=== PATIENT | female | born 1960 | race African-American/Black ===

== ENCOUNTER 2017-10-04 09:41 | Day surgery (SDC) | payer MEDICARE, OTHER ==
[2017-10-04 10:44] LABS: ADD MAN DIFF? NO
[2017-10-04 10:46] LABS: WHITE BLOOD COUNT 4.3 10^3/ul (4.8-10.8)
[2017-10-04 10:46] LABS: BASOPHILS % 0.7 % (0.0-2.0); EOSINOPHILS # 0.1 10^3/ul (0.0-0.5); EOSINOPHILS % 3.2 % (0.0-7.0); HEMATOCRIT 41.3 % (37.0-47.0); HEMOGLOBIN 12.3 g/dl (12.0-16.0); LYMPHOCYTES # 1.4 10^3/ul (0.8-2.9); LYMPHOCYTES % 32.5 % (15.0-51.0); MEAN CORPUSCULAR HEMOGLOBIN 27.5 pg (29.0-33.0); MEAN CORPUSCULAR HGB CONC 29.8 g/dl (32.0-37.0); MEAN CORPUSCULAR VOLUME 92.4 fl (82.0-101.0); MEAN PLATELET VOLUME 11.1 fl (7.4-10.4); MONOCYTE # 0.5 10^3/ul (0.3-0.9); NEUTROPHIL # 2.2 10^3/ul (1.6-7.5); NEUTROPHILS % 51.1 % (39.0-77.0); PLATELET COUNT 201 10^3/UL (140-415); RED BLOOD COUNT 4.47 10^6/ul (4.20-5.40); RED CELL DISTRIBUTION WIDTH 16.6 % (11.5-14.5)
[2017-10-04 11:13] LABS: ANION GAP 21 (8-16); CARBON DIOXIDE 27 mmol/L (21-31); CHLORIDE 100 mmol/L (97-110); GLUCOSE 98 mg/dl (70-220); INR 0.99; PROTIME 13.2 Sec (11.9-14.9)
[2017-10-04 11:14] LABS: PARTIAL THROMBOPLASTIN TIME 28.6 Sec (25.0-35.0)
[2017-10-04 11:30] LABS: SODIUM 141 mmol/L (135-144)
[2017-10-04 11:34] LABS: BLOOD UREA NITROGEN 50 mg/dl (7-20); CALCIUM 9.8 mg/dl (8.4-10.2); CREATININE 9.66 mg/dl (0.44-1.00)
[2017-10-04] MEDS: NA POLYST SULFON 15 GM/60 ML BTL PO ×2 (13:07)
[2017-10-05 07:22] LABS: POTASSIUM 6.8 mmol/L (3.5-5.1)
[2017-10-05 07:23] LABS: POTASSIUM 7.4 mmol/L (3.5-5.1)
== END 2017-10-04 13:15 | disposition home or self-care (01) ==
LOC: SDS 09:41 → LAB 09:41
DX: I12.0 Hypertensive chronic kidney disease with stage 5 chronic kidney disease or end stage renal disease (principal); Z01.818 Encounter for other preprocedural examination (principal); N18.6 End stage renal disease; I70.0 Atherosclerosis of aorta; Z53.9 Procedure and treatment not carried out, unspecified reason
CPT/HCPCS: 71045; 80048; 82962; 84132; 85025; 85610; 85730; 93005

== ENCOUNTER 2017-11-20 15:13 | Day surgery (SDC) | payer MEDICARE, OTHER ==
[2017-11-20 16:02] LABS: ADD MAN DIFF? NO
[2017-11-20 16:04] LABS: WHITE BLOOD COUNT 6.5 10^3/ul (4.8-10.8)
[2017-11-20 16:04] LABS: BASOPHILS % 0.5 % (0.0-2.0); EOSINOPHILS # 0.1 10^3/ul (0.0-0.5); EOSINOPHILS % 1.4 % (0.0-7.0); HEMATOCRIT 38.4 % (37.0-47.0); HEMOGLOBIN 11.9 g/dl (12.0-16.0); LYMPHOCYTES # 1.3 10^3/ul (0.8-2.9); LYMPHOCYTES % 19.1 % (15.0-51.0); MEAN CORPUSCULAR HEMOGLOBIN 27.2 pg (29.0-33.0); MEAN CORPUSCULAR VOLUME 87.9 fl (82.0-101.0); MEAN PLATELET VOLUME 10.3 fl (7.4-10.4); MONOCYTE # 0.7 10^3/ul (0.3-0.9); MONOCYTES % 10.9 % (0.0-11.0); NEUTROPHIL # 4.4 10^3/ul (1.6-7.5); NEUTROPHILS % 67.8 % (39.0-77.0); PLATELET COUNT 215 10^3/UL (140-415); RED BLOOD COUNT 4.37 10^6/ul (4.20-5.40); RED CELL DISTRIBUTION WIDTH 16.5 % (11.5-14.5)
[2017-11-20 16:26] LABS: ALANINE AMINOTRANSFERASE 23 IU/L (13-69); ALBUMIN 4.8 g/dl (3.3-4.9); ALKALINE PHOSPHATASE 113 IU/L (42-121); ANION GAP 23 (8-16); ASPARTATE AMINO TRANSFERASE 19 IU/L (15-46); BILIRUBIN,INDIRECT 0.1 mg/dl (0-1.1); BILIRUBIN,TOTAL 0.1 mg/dl (0.2-1.3); CARBON DIOXIDE 24 mmol/L (21-31); CHLORIDE 98 mmol/L (97-110); GLUCOSE 136 mg/dl (70-220); TOTAL PROTEIN 8.8 g/dl (6.1-8.1)
[2017-11-20 16:28] LABS: INR 0.93; PROTIME 12.6 Sec (11.9-14.9)
[2017-11-20 16:29] LABS: PARTIAL THROMBOPLASTIN TIME 27.8 Sec (25.0-35.0)
[2017-11-20 16:30] LABS: POTASSIUM 4.3 mmol/L (3.5-5.1); SODIUM 141 mmol/L (135-144)
[2017-11-20 16:31] LABS: BLOOD UREA NITROGEN 42 mg/dl (7-20)
[2017-11-20 16:32] LABS: CALCIUM 9.7 mg/dl (8.4-10.2); CREATININE 9.99 mg/dl (0.44-1.00)
[2017-11-20] MEDS ORDERED: IODIXANOL LOCM 100 ML BTL (16:44)
[2017-11-20] MEDS ORDERED: LIDOCAINE 1% (MDV) 20 ML INJ (16:44)
[2017-11-20] MEDS ORDERED: MIDAZOLAM 1 MG/ML 2 ML INJ (16:45)
[2017-11-20] MEDS ORDERED: FENTAnyl 50 MCG/ML VIAL (16:45)
[2017-11-20] MEDS ORDERED: ONDANSETRON 4 MG INJ (17:25)
== END 2017-11-20 18:00 | disposition home or self-care (01) ==
LOC: SDS 15:13
DX: T82.868A Thrombosis due to vascular prosthetic devices, implants and grafts, initial encounter (principal); T82.858A Stenosis of other vascular prosthetic devices, implants and grafts, initial encounter; I12.0 Hypertensive chronic kidney disease with stage 5 chronic kidney disease or end stage renal disease; E11.22 Type 2 diabetes mellitus with diabetic chronic kidney disease; N18.6 End stage renal disease; Z99.2 Dependence on renal dialysis; E03.9 Hypothyroidism, unspecified; I70.249 Atherosclerosis of native arteries of left leg with ulceration of unspecified site; L97.929 Non-pressure chronic ulcer of unspecified part of left lower leg with unspecified severity; I70.239 Atherosclerosis of native arteries of right leg with ulceration of unspecified site; L97.919 Non-pressure chronic ulcer of unspecified part of right lower leg with unspecified severity; Z89.512 Acquired absence of left leg below knee; E11.610 Type 2 diabetes mellitus with diabetic neuropathic arthropathy; Y83.2 Surgical operation with anastomosis, bypass or graft as the cause of abnormal reaction of the patient, or of later complication, without mention of misadventure at the time of the procedure
CPT/HCPCS: 36901; 71045; 75822; 80053; 82962; 85025; 85610; 85730; 93005

== ENCOUNTER 2017-12-25 05:29 | Day surgery (SDC) | payer MEDICARE, OTHER ==
[2017-12-25 06:21] LABS: ADD MAN DIFF? NO
[2017-12-25] MEDS ORDERED: PROPOFOL 20 ML (06:30)
[2017-12-25] MEDS ORDERED: MIDAZOLAM 1 MG/ML 2 ML INJ (06:30)
[2017-12-25] MEDS ORDERED: LIDOCAINE 2% (SDV) 5 ML INJ (06:30)
[2017-12-25] MEDS ORDERED: LABETALOL HCL 20MG INJ IV (06:30)
[2017-12-25] MEDS ORDERED: DIPHENHYDRAMINE 50 MG INJ IV (06:30)
[2017-12-25] MEDS ORDERED: ROCURONIUM 50 MG INJ (06:30)
[2017-12-25] MEDS ORDERED: MEPERIDINE 25 MG INJ IV (06:30)
[2017-12-25] MEDS ORDERED: morphine (1 MG/ML) 10ML SYRINGE IV ×3 (06:30)
[2017-12-25] MEDS ORDERED: hydrALAzine 20 MG INJ IV (06:30)
[2017-12-25] MEDS ORDERED: GLYCOPYRROLATE 0.4 MG INJ (06:30)
[2017-12-25] MEDS ORDERED: FENTAnyl 50 MCG/ML VIAL IV ×2 (06:30)
[2017-12-25] MEDS ORDERED: OXYCODONE/ACETAMINOPHEN (5/325) TAB PO ×2 (06:30)
[2017-12-25] MEDS ORDERED: HYDROmorphONE (0.2 MG/ML) 10ML SYG IV ×3 (06:30)
[2017-12-25] MEDS ORDERED: ONDANSETRON 4 MG INJ IV (06:30)
[2017-12-25] MEDS ORDERED: EPHEDrine SULFATE 50 MG/5 ML SYG IV (06:30)
[2017-12-25] MEDS ORDERED: MIDAZOLAM 1 MG/ML 2 ML INJ IV (06:30)
[2017-12-25] MEDS ORDERED: NEOSTIGMINE 3 MG/3 ML SYRINGE (06:30)
[2017-12-25] MEDS ORDERED: ATROPINE 1 MG/10 ML SYRINGE IV (06:30)
[2017-12-25] MEDS ORDERED: DEXAMETHASONE 4 MG/ML 1 ML INJ (06:31)
[2017-12-25] MEDS ORDERED: FENTAnyl 50 MCG/ML VIAL (06:31)
[2017-12-25] MEDS ORDERED: ONDANSETRON 4 MG INJ (06:31)
[2017-12-25] MEDS ORDERED: ROPIVACAINE 0.5 % 30 ML VIAL (06:32)
[2017-12-25 06:37] LABS: WHITE BLOOD COUNT 6.1 10^3/ul (4.8-10.8)
[2017-12-25 06:37] LABS: BASOPHILS % 0.5 % (0.0-2.0); EOSINOPHILS # 0.2 10^3/ul (0.0-0.5); EOSINOPHILS % 3.5 % (0.0-7.0); HEMATOCRIT 38.8 % (37.0-47.0); HEMOGLOBIN 11.7 g/dl (12.0-16.0); LYMPHOCYTES # 1.5 10^3/ul (0.8-2.9); LYMPHOCYTES % 24.3 % (15.0-51.0); MEAN CORPUSCULAR HEMOGLOBIN 27.7 pg (29.0-33.0); MEAN CORPUSCULAR HGB CONC 30.2 g/dl (32.0-37.0); MEAN CORPUSCULAR VOLUME 91.7 fl (82.0-101.0); MEAN PLATELET VOLUME 10.3 fl (7.4-10.4); MONOCYTE # 0.7 10^3/ul (0.3-0.9); MONOCYTES % 11.2 % (0.0-11.0); NEUTROPHIL # 3.7 10^3/ul (1.6-7.5); NEUTROPHILS % 60.3 % (39.0-77.0); NUCLEATED RED BLOOD CELLS% 0.3 /100WBC (0.0-0.0); PLATELET COUNT 260 10^3/UL (140-415); RED BLOOD COUNT 4.23 10^6/ul (4.20-5.40)
[2017-12-25 06:52] LABS: ANION GAP 15 (8-16); CARBON DIOXIDE 34 mmol/L (21-31); CHLORIDE 100 mmol/L (97-110); GLUCOSE 127 mg/dl (70-220)
[2017-12-25 06:53] LABS: INR 0.96; PARTIAL THROMBOPLASTIN TIME 28.1 Sec (25.0-35.0); PROTIME 12.9 Sec (11.9-14.9)
[2017-12-25] MEDS ORDERED: THROMBIN 5000 UNIT VIAL (06:54)
[2017-12-25] MEDS ORDERED: LIDOCAINE 1% (MPF) 30 ML INJ (06:54)
[2017-12-25] MEDS ORDERED: GELATIN SIZE 100 SPONGE (06:54)
[2017-12-25] MEDS ORDERED: HEPARIN 1000 UNITS/ML 10 ML INJ (06:54)
[2017-12-25 06:57] LABS: BLOOD UREA NITROGEN 44 mg/dl (7-20); CALCIUM 10.1 mg/dl (8.4-10.2); CREATININE 8.37 mg/dl (0.44-1.00); SODIUM 143 mmol/L (135-144)
[2017-12-25] MEDS ORDERED: CEFAZOLIN 2 GM/50 ML (PMX) 50 ML IVPB (07:00)
[2017-12-25 07:02] LABS: POTASSIUM 6.1 mmol/L (3.5-5.1)
== END 2017-12-25 07:30 | disposition home or self-care (01) ==
LOC: SDS 05:29
DX: I12.0 Hypertensive chronic kidney disease with stage 5 chronic kidney disease or end stage renal disease (principal); N18.6 End stage renal disease; Z53.9 Procedure and treatment not carried out, unspecified reason
CPT/HCPCS: 71045; 73060-RT; 80048; 82962; 85025; 85610; 85730; 93005

== ENCOUNTER 2017-12-25 07:35 | Inpatient (IN) | payer MEDICARE, OTHER ==
[2017-12-25] MEDS: morphine 2 MG INJ IV (07:56)
[2017-12-25] MEDS: NA POLYST SULFON 15 GM/60 ML BTL PO (07:56)
[2017-12-25 10:03] LABS: IRON 42 ug/dl (35-150)
[2017-12-25 10:12] LABS: % IRON SATURATION 21 % SAT (22-52); TOTAL IRON BINDING CAPACITY 201 ug/dl (241-421)
[2017-12-25] MEDS ORDERED: ACETAMINOPHEN 325 MG TAB PO (11:00)
[2017-12-25] MEDS ORDERED: DOCUSATE SODIUM 100 MG CAP PO (11:00)
[2017-12-25] MEDS ORDERED: DEXTROSE 50% 50 ML SYRINGE IV ×2 (11:00)
[2017-12-25] MEDS ORDERED: GLUCOSE GEL 15 GRAM TUBE PO ×2 (11:00)
[2017-12-25] MEDS ORDERED: ONDANSETRON 4 MG INJ IV (11:00)
[2017-12-25] MEDS ORDERED: GLUCAGON 1 MG INJ IM (11:00)
[2017-12-25] MEDS ORDERED: GLUCOSE GEL 15 GRAM TUBE BUCCAL (11:00)
[2017-12-25] MEDS ORDERED: NACL 0.9% 3 ML SYG IV (11:00)
[2017-12-25] MEDS: HYDROCODONE/APAP (10/325) TAB PO ×3 (11:36→23:52)
[2017-12-25] MEDS: INSULIN ASPART [NOVOLOG] 3 ML PEN SC ×3 (12:00→21:00)
[2017-12-25] MEDS: SEVELAMER CARBONATE 0.8 GM PKT PO ×2 (13:15→17:54)
[2017-12-25] MEDS: DIPHENHYDRAMINE 50 MG INJ IV (13:15)
[2017-12-25] MEDS: MULTIVITAMINS THERAPEUTIC TAB PO (13:15)
[2017-12-25] MEDS: ALBUMIN HUMAN 25% 100 ML IV (14:26)
[2017-12-25] MEDS: HEPARIN 1000 UNITS/ML 10 ML INJ CATHETER (16:44)
[2017-12-25 16:58] LABS: HEPATITIS B SURFACE ANTIGEN NEGATIVE (NEGATIVE)
[2017-12-25] MEDS: DIPHENHYDRAMINE 25 MG CAP PO (19:40)
[2017-12-26] MEDS: ACCU-CHEK XX (02:00)
[2017-12-26] MEDS: HYDROCODONE/APAP (10/325) TAB PO ×3 (06:30→18:12)
[2017-12-26] MEDS: INSULIN ASPART [NOVOLOG] 3 ML PEN SC ×3 (08:00→18:05)
[2017-12-26] MEDS: MULTIVITAMINS THERAPEUTIC TAB PO (08:06)
[2017-12-26] MEDS: SEVELAMER CARBONATE 0.8 GM PKT PO ×3 (08:06→18:12)
[2017-12-26] MEDS: INSULIN GLARGINE [LANtus] 3 ML PEN SC (08:10)
[2017-12-26 09:25] LABS: ADD MAN DIFF? NO
[2017-12-26 09:32] LABS: WHITE BLOOD COUNT 4.3 10^3/ul (4.8-10.8)
[2017-12-26 09:33] LABS: BASOPHILS % 0.7 % (0.0-2.0); EOSINOPHILS # 0.2 10^3/ul (0.0-0.5); EOSINOPHILS % 3.8 % (0.0-7.0); HEMATOCRIT 38.7 % (37.0-47.0); HEMOGLOBIN 11.4 g/dl (12.0-16.0); LYMPHOCYTES % 22.3 % (15.0-51.0); MEAN CORPUSCULAR HGB CONC 29.5 g/dl (32.0-37.0); MEAN CORPUSCULAR VOLUME 91.7 fl (82.0-101.0); MEAN PLATELET VOLUME 10.4 fl (7.4-10.4); MONOCYTE # 0.5 10^3/ul (0.3-0.9); MONOCYTES % 11.7 % (0.0-11.0); NEUTROPHIL # 2.6 10^3/ul (1.6-7.5); NEUTROPHILS % 61.3 % (39.0-77.0); NUCLEATED RED BLOOD CELLS% 0.9 /100WBC (0.0-0.0); PLATELET COUNT 248 10^3/UL (140-415); RED BLOOD COUNT 4.22 10^6/ul (4.20-5.40)
[2017-12-26 09:57] LABS: HEMOGLOBIN A1C 6.2 % (0-5.9)
[2017-12-26 10:12] LABS: ANION GAP 18 (8-16); BLOOD UREA NITROGEN 29 mg/dl (7-20); CALCIUM 9.7 mg/dl (8.4-10.2); CARBON DIOXIDE 31 mmol/L (21-31); CHLORIDE 101 mmol/L (97-110); CREATININE 6.29 mg/dl (0.44-1.00); GLUCOSE 117 mg/dl (70-220); MAGNESIUM 2.6 mg/dl (1.7-2.5); PHOSPHORUS 5.1 mg/dl (2.5-4.9); POTASSIUM 5.1 mmol/L (3.5-5.1); SODIUM 145 mmol/L (135-144)
[2017-12-26] MEDS: DIPHENHYDRAMINE 25 MG CAP PO (14:15)
[2017-12-26] MEDS: DIPHENHYDRAMINE 50 MG CAP PO (15:26)
[2017-12-26] MEDS: HEPARIN 1000 UNITS/ML 10 ML INJ CATHETER (17:00)
[2017-12-26] MEDS: SOD FERRIC GLUC COMPLX 125 MG in SOD CHLORIDE 0.9% 100 ML IVPB (18:00)
[2017-12-26] MEDS: EPOETIN 4000 UNITS/1 ML INJ (ESRD) SC (18:11)
[2017-12-26] MEDS ORDERED: DIPHENHYDRAMINE 50 MG CAP PO (19:00)
[2017-12-29] MEDS ORDERED: HYDROCODONE/APAP (5/325) TAB (18:29)
== END 2017-12-26 19:51 | disposition home or self-care (01) | DRG 640 ==
LOC: MS4 08:36 → E/R 07:35 → MS4 08:01
DX: E87.5 Hyperkalemia (principal); N18.6 End stage renal disease; I12.0 Hypertensive chronic kidney disease with stage 5 chronic kidney disease or end stage renal disease; E11.22 Type 2 diabetes mellitus with diabetic chronic kidney disease; Z99.2 Dependence on renal dialysis; I27.20 Pulmonary hypertension, unspecified; D63.1 Anemia in chronic kidney disease; E03.9 Hypothyroidism, unspecified; E11.51 Type 2 diabetes mellitus with diabetic peripheral angiopathy without gangrene; Z89.512 Acquired absence of left leg below knee; D50.9 Iron deficiency anemia, unspecified; E83.9 Disorder of mineral metabolism, unspecified; F41.9 Anxiety disorder, unspecified; E11.610 Type 2 diabetes mellitus with diabetic neuropathic arthropathy; Z79.4 Long term (current) use of insulin; I70.203 Unspecified atherosclerosis of native arteries of extremities, bilateral legs
CPT/HCPCS: 80048; 82728; 82962; 83036; 83540; 83735; 84100; 85025; 87340; 90935; 96374; 99285-25

== ENCOUNTER 2017-12-29 11:37 | Observation (INO) | payer MEDICARE, OTHER ==
[2017-12-29 14:45] LABS: ADD MAN DIFF? NO
[2017-12-29 14:47] LABS: BASOPHILS % 0.6 % (0.0-2.0); EOSINOPHILS # 0.2 10^3/ul (0.0-0.5); EOSINOPHILS % 3.1 % (0.0-7.0); HEMATOCRIT 36.2 % (37.0-47.0); HEMOGLOBIN 10.9 g/dl (12.0-16.0); LYMPHOCYTES # 1.2 10^3/ul (0.8-2.9); LYMPHOCYTES % 24.2 % (15.0-51.0); MEAN CORPUSCULAR HEMOGLOBIN 27.5 pg (29.0-33.0); MEAN CORPUSCULAR HGB CONC 30.1 g/dl (32.0-37.0); MEAN CORPUSCULAR VOLUME 91.4 fl (82.0-101.0); MEAN PLATELET VOLUME 10.8 fl (7.4-10.4); MONOCYTE # 0.8 10^3/ul (0.3-0.9); MONOCYTES % 15.9 % (0.0-11.0); NEUTROPHIL # 2.8 10^3/ul (1.6-7.5); PLATELET COUNT 221 10^3/UL (140-415); RED BLOOD COUNT 3.96 10^6/ul (4.20-5.40); RED CELL DISTRIBUTION WIDTH 15.8 % (11.5-14.5)
[2017-12-29 14:47] LABS: WHITE BLOOD COUNT 4.9 10^3/ul (4.8-10.8)
[2017-12-29 14:53] LABS: ANION GAP 15 (8-16); CARBON DIOXIDE 33 mmol/L (21-31); CHLORIDE 98 mmol/L (97-110); GLUCOSE 103 mg/dl (70-220)
[2017-12-29 15:07] LABS: CALCIUM 9.3 mg/dl (8.4-10.2); SODIUM 142 mmol/L (135-144)
[2017-12-29 15:08] LABS: BLOOD UREA NITROGEN 31 mg/dl (7-20); CREATININE 6.49 mg/dl (0.44-1.00); POTASSIUM 4.1 mmol/L (3.5-5.1)
[2017-12-29] MEDS ORDERED: GLUCOSE GEL 15 GRAM TUBE BUCCAL (18:00)
[2017-12-29] MEDS ORDERED: GLUCOSE GEL 15 GRAM TUBE PO ×2 (18:00)
[2017-12-29] MEDS ORDERED: ZOLPIDEM 5 MG TAB PO (18:00)
[2017-12-29] MEDS: SEVELAMER CARBONATE 0.8 GM PKT PO (18:00)
[2017-12-29] MEDS ORDERED: NACL 0.9% 3 ML SYG IV (18:00)
[2017-12-29] MEDS: INSULIN ASPART [NOVOLOG] 3 ML PEN SC ×2 (18:00→21:00)
[2017-12-29] MEDS ORDERED: GLUCAGON 1 MG INJ IM (18:00)
[2017-12-29] MEDS ORDERED: DEXTROSE 50% 50 ML SYRINGE IV ×2 (18:00)
[2017-12-29] MEDS: HYDROCODONE/APAP (5/325) TAB PO (18:30)
[2017-12-29] MEDS: ALPRAZOLAM 1 MG TAB PO (21:38)
[2017-12-29] MEDS: DIPHENHYDRAMINE 50 MG CAP PO (23:48)
[2017-12-30] MEDS: HYDROCODONE/APAP (5/325) TAB PO (00:35)
[2017-12-30] MEDS: SOD CHLORIDE 0.9% 1,000 ML IV (00:42)
[2017-12-30] MEDS: INSULIN ASPART [NOVOLOG] 3 ML PEN SC ×4 (00:56→13:00)
[2017-12-30] MEDS ORDERED: CEFAZOLIN 1 GM INJ (07:00)
[2017-12-30] MEDS: CEFAZOLIN 2 GM/50 ML (PMX) 50 ML IVPB (07:00)
[2017-12-30] MEDS ORDERED: FENTAnyl 50 MCG/ML VIAL ×2 (07:48→08:31)
[2017-12-30] MEDS ORDERED: ROPIVACAINE 0.5 % 30 ML VIAL (07:48)
[2017-12-30] MEDS ORDERED: MIDAZOLAM 1 MG/ML 2 ML INJ (07:48)
[2017-12-30] MEDS ORDERED: VANCOMYCIN 1 GM (PMX) 250 ML (08:11)
[2017-12-30 08:12] LABS: POTASSIUM 3.8 mmol/L (3.5-5.1)
[2017-12-30] MEDS: SEVELAMER CARBONATE 0.8 GM PKT PO ×2 (08:15→10:47)
[2017-12-30] MEDS ORDERED: DIPHENHYDRAMINE 50 MG INJ (08:44)
[2017-12-30] MEDS: HEPARIN 1000 UNITS/ML 10 ML INJ (08:50)
[2017-12-30] MEDS: LIDOCAINE 1% (MPF) 30 ML INJ (08:50)
[2017-12-30] MEDS: THROMBIN 5000 UNIT VIAL (08:51)
[2017-12-30] MEDS: GELATIN SIZE 100 SPONGE (08:51)
[2017-12-30] MEDS: ALPRAZOLAM 1 MG TAB PO ×2 (09:00→13:00)
[2017-12-30] MEDS ORDERED: PROCHLORPERAZINE 10 MG INJ IV (10:00)
[2017-12-30] MEDS ORDERED: HYDROmorphONE (0.2 MG/ML) 10ML SYG IV (10:00)
[2017-12-30] MEDS ORDERED: DIPHENHYDRAMINE 50 MG INJ IV (10:00)
[2017-12-30] MEDS ORDERED: FENTAnyl 50 MCG/ML VIAL IV (10:00)
[2017-12-30] MEDS ORDERED: MEPERIDINE 25 MG INJ IV (10:00)
[2017-12-30] MEDS ORDERED: ONDANSETRON 4 MG INJ IV (10:00)
== END 2017-12-30 13:55 | disposition home or self-care (01) ==
LOC: SUR 11:37 → REC 11:37 → SDS 17:44 → MS2 17:44
PROVIDERS: Internal Medicine
DX: I12.0 Hypertensive chronic kidney disease with stage 5 chronic kidney disease or end stage renal disease (principal); E11.22 Type 2 diabetes mellitus with diabetic chronic kidney disease; N18.6 End stage renal disease; Z99.2 Dependence on renal dialysis; E11.51 Type 2 diabetes mellitus with diabetic peripheral angiopathy without gangrene; E03.9 Hypothyroidism, unspecified; D63.1 Anemia in chronic kidney disease; Q78.9 Osteochondrodysplasia, unspecified; Z89.512 Acquired absence of left leg below knee; I25.10 Atherosclerotic heart disease of native coronary artery without angina pectoris; Z86.718 Personal history of other venous thrombosis and embolism
CPT/HCPCS: 36821; 73030-RT; 73080-RT; 80048; 82962; 84132; 85025; 87081

== ENCOUNTER 2019-02-14 16:07 | Emergency (ER) | payer MEDICARE, OTHER ==
[2019-02-14] MEDS: OXYCODONE/ACETAMINOPHEN (5/325) TAB PO (18:24)
== END 2019-02-14 20:01 | disposition home or self-care (01) ==
LOC: FTE 16:07
DX: M62.830 Muscle spasm of back (principal); I12.9 Hypertensive chronic kidney disease with stage 1 through stage 4 chronic kidney disease, or unspecified chronic kidney disease; N18.9 Chronic kidney disease, unspecified; E11.22 Type 2 diabetes mellitus with diabetic chronic kidney disease; Z79.4 Long term (current) use of insulin
CPT/HCPCS: 72072; 72100; 99283-25

== ENCOUNTER → 2019-02-25 | Outpatient (CLI) | payer MEDICARE, OTHER | END | disposition home or self-care (01) | LOC: NUC 10:58 | DX: E05.20 Thyrotoxicosis with toxic multinodular goiter without thyrotoxic crisis or storm (principal) | CPT/HCPCS: 78014; A9516 ==